=== PATIENT | male | born 1985 | race Caucasian/White ===

== ENCOUNTER 2018-10-25 14:19 | Emergency (ER) | payer SELFPAY ==
[~2018-10-25] VITALS: Ht 185.4 cm; Wt 99.8 kg
[2018-10-25 14:40] VITALS: BP_SYST 156
[2018-10-25 16:42] VITALS: BP_SYST 156
== END 2018-10-25 16:42 | disposition home or self-care (01) ==
LOC: SED 14:19
DX: L73.9 Follicular disorder, unspecified (principal); R03.0 Elevated blood-pressure reading, without diagnosis of hypertension
CPT/HCPCS: 99283